=== PATIENT | female | born 1990 | race Asian ===

== ENCOUNTER 2021-06-22 06:01 | Inpatient (IN) ==
--- NOTE | 2021-06-16 12:23 | Anesthesiology Consultation ---
Date of Service June 16, 2021 Assessment & Plan (1) Encounter for pre-operative examination: Chart Review Chart Review: historic preservationist initiated -Will leave BSG DOS to anesthesiologist (hx of gestational DM) Pt has "local anesthesia" allergy - per patient- was given local anesthesia during root canal (unknown what mediation)- caused palpitations Per nursing assessment 06/16/2021, patient denies any recent travel. No known Covid infection in the past 90 days. Patient is fully vaccinated for Covid. No known Covid positive exposures or Covid related symptoms. Preop Covid testing scheduled 06/19/21= will await results History Surgery Operation Date: 06/22/21 07:30 Proposed Procedures p Primary Section in LD - Rito Sloan MD Height/Weight Height: 5 ft 6 in Weight: 79.379 kg Allergies Allergy/AdvReac Type Severity Reaction Status Date / Time local anesthesia AdvReac Intermediate Palpitation Uncoded 06/16/21 11:06 s Medications Home Medications Medication Instructions Recorded Confirmed Last Taken ferrous sulfate 325 mg (65 mg 325 mg PO QAM 04/16/21 06/16/21 04/15/21 08:00 iron) tablet (iron) prenat.vits,omar,ilk-ilug-xagon 1 tab PO QAM 04/16/21 06/16/21 04/15/21 08:00 cyanocobalamin (vitamin B-12) 1,000 mcg PO QAM 06/16/21 06/16/21 Unknown 1,000 mcg tablet (Vitamin B-12) sucralfate 1 gram tablet 1 g PO BID 06/16/21 06/16/21 Unknown Past Medical History Medical History Anemia GERD (gastroesophageal reflux disease) Gestational diabetes diet controlled. History of palpitations "many years ago" Past Family History Family History Other No family history of adverse response to anesthesia Past Surgical History Surgical History History of colonoscopy History of dental surgery local anesthesia History of esophagogastroduodenoscopy (EGD) Social History Smoking Status: Never smoker Do You Dip or Chew Tobacco: No Hx Alcohol Use: No Hx Substance Use: No
[~2021-06-22 06:01] MED LIST: CITRIC ACID/SODIUM CITRATE 15 ML UDC PO SCH; LACTATED RINGER'S 1,000 ML IV SCH; ceFAZolin 2,000 MG in SYRINGE 0 ML IV SCH
[2021-06-22] MEDS ORDERED: fentaNYL citrate 100 MCG/2 ML VIAL ONE (06:51)
[2021-06-22] MEDS ORDERED: MoRPHine SULFATE PF 1 MG/ML 10 ML AMP/VIAL ONE (06:51)
[2021-06-22 07:15] LABS: Basophils # (auto) 0.01 K/uL (0-0.2); Basophils % (auto) 0.1 %; Eosinophils # (auto) 0.07 K/uL (0-0.5); Eosinophils % (auto) 0.7 %; Hematocrit (blood only) 35.6 % (37-47); Hemoglobin 11.5 g/dL (12.0-16.0); Immature Granulocytes # (auto) 0.02 K/uL (0.00-0.02); Immature Granulocytes % (auto) 0.2 %; Lymphocytes # (auto) 2.52 K/uL (1.2-3.4); Lymphocytes % (auto) 24.7 %; Mean Corpuscular Hemoglobin 29.9 pg (25-34); Mean Corpuscular Hgb Conc 32.3 g/dL (32-36); Mean Corpuscular Volume 92.5 fL (80-100); Mean Platelet Volume 10.6 fL (7.4-10.4); Monocytes # (auto) 0.67 K/uL (0.11-0.59); Monocytes % (auto) 6.6 %; Neutrophils # (auto) 6.91 K/uL (1.4-6.5); Neutrophils % (auto) 67.7 %; Platelet Count 237 K/uL (130-400); RDW Coefficient of Variation 12.8 % (11.5-14.5); Red Blood Count 3.85 M/uL (4.2-5.4)
--- NOTE | 2021-06-22 07:19 | History & Physical Report ---
Date of Service June 22, 2021 Assessment & Plan (1) Delivery by elective section: Admission and Anticipated Discharge Date Admission Date: June 22, 2021 History of Present Illness Chief Complaint: elective Primary Primary Care Provider: Sophie Constantino MD 31 F P0000 at term admitted for an elective primary section due to anal fissures. Allergies Allergy/AdvReac Type Severity Reaction Status Date / Time local anesthesia AdvReac Intermediate Palpitation Uncoded 06/16/21 11:06 s Home Medications Medication Instructions Recorded Confirmed Type ferrous sulfate 325 mg (65 mg 325 mg PO QAM 04/16/21 06/22/21 History iron) tablet (iron) prenat.vits,omar,ecq-zqif-cnsvw 1 tab PO QAM 04/16/21 06/22/21 History cyanocobalamin (vitamin B-12) 1,000 mcg PO QAM 06/16/21 06/22/21 History 1,000 mcg tablet (Vitamin B-12) sucralfate 1 gram tablet 1 g PO BID 06/16/21 06/16/21 History Patient History Medical History Anemia GERD (gastroesophageal reflux disease) Gestational diabetes diet controlled. History of palpitations "many years ago" Surgical History History of colonoscopy History of dental surgery local anesthesia History of esophagogastroduodenoscopy (EGD) Family History Other No family history of adverse response to anesthesia Social History Smoking Status: Never smoker Second Hand Exposure: No; Do You Dip or Chew Tobacco: No; Tobacco Cessation Education Requested by Patient: No Hx Alcohol Use: No Hx Substance Use: No Preferred Language: Azeri Communication Ability: Effective Optical Scientist Required: No Beliefs That Will Affect Care: None marital status: Current Living Situation: Spouse and Family Current Living Situation Comment: mother Other Information That Helps Us Care for You: No Feels Safe at Home: Yes Safety Concerns: Feels Safe At This Time Assistive Devices: None OB History neg OVEN TECHNICIAN History neg Review of Systems All systems reviewed & are unremarkable except as noted in HPI & below Physical Exam Constitutional: WD/WN, vitals as above Eyes: PERRL, conjunctivae normal, anicteric sclerae Respiratory: normal respiratory effort, lungs clear to auscultation Cardiovascular: RRR, no murmur, no edema Skin: no rashes, warm and dry Neurologic: patellar DTR's 2+ bilat, sensation intact Psychiatric: A+Ox3, euthymic affect Genitourinary: OB Exam Monitor Tracing: + external FHT monitor used, + external uterine monitor used, + intra-uterine pressure catheter used, + category I and + normal FHT variability Results & Data ([facility]) Vital Signs (Past 12 Hours) Vital Signs Temp Pulse Resp BP 06/22/21 06:20 36.6 C 83 16 114/84 06/22/21 06:12 83 114/84 Laboratory Results Laboratory Results - last 72 hr 06/22/21 06:09 WBC 10.20 RBC 3.85 L Hgb 11.5 L Hct 35.6 L MCV 92.5 MCH 29.9 MCHC 32.3 RDW Std Deviation 43.0 RDW Coeff of Sheila 12.8 Plt Count 237 MPV 10.6 H Immature Gran % (Auto) 0.2 Neut % (Auto) 67.7 Lymph % (Auto) 24.7 [place] % (Auto) 6.6 Eos % (Auto) 0.7 Baso % (Auto) 0.1 Neut # (Auto) 6.91 H Lymph # (Auto) 2.52 [place] # (Auto) 0.67 H Eos # (Auto) 0.07 Baso # (Auto) 0.01 Immature Gran # (Auto) 0.02 Code Status & VTE Plan VTE Prophylaxis Plan VTE Prophylaxis will be ordered: No
[2021-06-22] MEDS ORDERED: diphenhydrAMINE 50 MG/ML VIAL IV PRN ×2 (08:32→09:07)
[2021-06-22] MEDS ORDERED: LACTATED RINGER'S 500 ML IV PRN (08:32)
[2021-06-22] MEDS ORDERED: ePHEDrine sulfate 50 MG/ML AMP IV PRN (08:32)
[2021-06-22] MEDS ORDERED: NALBUPHINE HCL INJ 10 MG/ML AMP IV PRN (08:32)
[2021-06-22] MEDS ORDERED: NALOXONE HCL 0.08 MG in SYRINGE 1.8 ML IV PRN (08:32)
[2021-06-22] MEDS ORDERED: NALOXONE HCL 1 MG in SODIUM CHLORIDE 0.9% 1000ML 1,000 ML IV PRN (08:32)
[2021-06-22] MEDS ORDERED: PROMETHAZINE HCL 6.25 MG in SODIUM CHLORIDE 0.9% 50 ML IV PRN (08:32)
[2021-06-22] MEDS ORDERED: NALOXONE HCL 0.4 MG/1 ML VIAL/CARP IV PRN (08:32)
[2021-06-22] MEDS ORDERED: MoRPHine SULFATE PF 1 MG/ML 10 ML AMP/VIAL INT SPINAL ONE (08:32)
[2021-06-22] MEDS ORDERED: OXYTOCIN 10 UNITS/ML 10ML VIAL ONE (08:33)
[2021-06-22] MEDS ORDERED: ONDANSETRON INJ 2 MG/ML 2 ML VIAL ONE (08:33)
[2021-06-22] MEDS ORDERED: PHENYLEPHRINE HCL 10 MG/ML VIAL ONE (08:33)
[2021-06-22] MEDS ORDERED: DC INTRASPINAL MORPHINE SCH (08:45)
[2021-06-22] MEDS ORDERED: NO NARCOTICS OR SEDATIVES SCH (08:45)
[2021-06-22] MEDS ORDERED: SODIUM CHLORIDE 0.9% 1000ML 1,000 ML IV SCH (08:45)
[2021-06-22] MEDS ORDERED: ONDANSETRON INJ 2 MG/ML 2 ML VIAL IV PRN (09:07)
[2021-06-22] MEDS ORDERED: BENZOCAINE 20% AER SPR 82.5 GM CAN EXT PRN (09:07)
[2021-06-22] MEDS ORDERED: HYDROCORTISONE ACETATE 25 MG SUPP PR PRN (09:07)
[2021-06-22] MEDS ORDERED: MAGNESIUM HYDROXIDE SUSP 30 ML UDC PO PRN (09:07)
[2021-06-22] MEDS ORDERED: SENNA 8.6 MG TAB PO PRN (09:07)
[2021-06-22] MEDS ORDERED: PROMETHAZINE HCL 25 MG in SODIUM CHLORIDE 0.9% 50 ML IV PRN (09:07)
[2021-06-22] MEDS ORDERED: diphenhydrAMINE Capsule 25 MG CAP PO PRN (09:07)
[2021-06-22] MEDS ORDERED: DIPHTHERIA/TETANUS/PERTUSSIS 0.5 ML SYR/VIAL IM ONE (09:07)
[2021-06-22] MEDS ORDERED: oxyCODONE/ACETAMINOPHEN 5mg/325mg TAB PO PRN (09:07)
--- NOTE | 2021-06-22 09:21 | Anesthesia Procedure Note ---
Date of Service June 22, 2021 Anesthesia Post Epidural Note Vital Signs Vital Signs: Temp Pulse Resp BP Pulse Ox 36.6 C 79 16 120/75 100 06/22/21 06:20 06/22/21 09:16 06/22/21 06:20 06/22/21 09:16 06/22/21 09:16 Pain Intensity Left Leg: Pain Intensity: 6 Notes Mental Status: alert / awake / arousable and participated in evaluation Patient Amnestic to Procedure: No Nausea / Vomiting: adequately controlled Pain: adequately controlled Airway Patency, RR, SpO2: stable & adequate BP & HR: stable & adequate Hydration State: stable & adequate Neuraxial Anesthesia: was administered and sensory block is resolving Anesthetic Complications: no major complications apparent and Pt Satisfied with anesthetic care Epidural: Removed without complications and With tip intact
--- NOTE | 2021-06-22 09:24 | Post Operative Brief Note ---
Immediate Post Op Note v1 Date of Surgery June 22, 2021 Pre & Post Diagnosis Operation Date: 06/22/21 07:30 I identified the patient and participated in the time-out.: Yes Procedure Operation Date: 06/22/21 07:30 Primary Section Surgeon Rito Sloan MD Equipment Driver Beverly Estimated Blood Loss 500 Findings Consistent with Post-Op Diagnosis live male Apgars 8/9 weight pending Fluids 1500 LR Specimens cord blood placenta Drains Johnston Catheter Complications none Disposition Accompanied Patient To Recovery: Yes Overlapping Procedure I was present for: the critical portions of procedure.
[2021-06-22] MEDS ORDERED: INFLUENZA VACCINE HIGH DOSE PF 65+ 0.7 ML SYR IM ONE (09:27)
[2021-06-22] MEDS: MoRPHine SULFATE 2 MG/ML CARP IV PRN ×2 (10:10→23:27)
--- NOTE | 2021-06-22 10:30 | Operative Report (OR) ---
DATE OF SURGERY: 06/22/2021. PREOPERATIVE DIAGNOSIS: Term elective primary section. POSTOPERATIVE DIAGNOSIS: Term elective primary section. PROCEDURE: Primary section, low segment transverse. SURGEON: Rito Sloan MD. FINISHING RANGE FEEDER: MENG Murillo. ANESTHESIA: Spinal with Duramorph. COMPLICATIONS: None. FINDINGS: Live male, Apgars 8 and 9, weight pending. ESTIMATED BLOOD LOSS: 500 mL. TOTAL FLUIDS: 1500 mL. TOTAL URINE OUTPUT: 250 mL. CLINICAL HISTORY: The patient is a 31-year-old female, para 0-0-0-0, at 39 weeks and 3 days, admitte d for an elective primary section. The patient had anal fissures and decided to opt for kay jay jay section rather than attempt a vaginal delivery. She was given the risks, benefits, and alternatives to the procedure before surgery. A timeout was called prior to the start of the proced ure, and the patient received 2 grams of Ancef preop. DESCRIPTION OF PROCEDURE: Under satisfactory spinal anesthesia, the patient was prepped and draped i n the usual sterile fashion. A low Pfannenstiel incision was made, carrying the incision down in suc cessive layers without difficulty. Upon entering into the peritoneal cavity, with sharp dissection, a bladder flap was made using Metzenbaum scissors. An incision was made as a low transverse incision . The incision was widened in the AP diameter. The amniotic sac was nicked and found to be clear. The infant was then delivered with the aid of fundal pressure from the vertex presentation. There wa s a 1 minute cord delay followed by clamping and the baby was a male, Apgars 8 and 9, weight pe nding. The baby was handed to economic consultant present for the delivery. Cord blood was obtained. Plac enta delivered spontaneously and intact. Uterus was exteriorized. Ring forceps were then placed on both angles. Another ring was used to dila te the cervix. After the uterus was cleared of all clots and debris, the uterus was closed in a doubl e layer closure starting with a 0 Vicryl suture in a continuous interlocking fashion followed by a se cond imbricating suture. No active bleeding was noted. The initial sponge, needle, and instrument c ounts were found to be correct. Tubes, ovaries bilaterally were found to be within normal limits. T he uterus was then placed back into the normal anatomical position. Contents of the pelvic abdominal cavity were then irrigated to clear. The fascia was then reapproximated from both ends using 0 Vicryl suture in a continuous fashion. Sub cuticular space was closed with a 3-0 plain suture. After this, it was irrigated and then the skin w as reapproximated with 4-0 Monocryl suture. Steri-Strips were applied along with Telfa and dressing. Urine output was 250 mL of clear. Total fluids 1500 mL and the estimated blood loss 500 mL. Final sponge, needle and instrument counts were found to be correct. The patient was then placed supine on a stretcher and taken to recovery room in stable condition. Please note that MENG Murillo, was needed for exposure, retraction, aid in delivering the baby with fundal pressure and helped with sanjeev sure of the abdomen. Job ID: [id number]
[2021-06-22] MEDS: HYDROmorphone INJ 0.5 MG/0.5 ML SYR IV PRN ×2 (10:50→11:09)
[2021-06-22] MEDS ORDERED: OXYTOCIN 20 UNITS in LACTATED RINGER'S 1,000 ML IV SCH (11:45)
[2021-06-22] MEDS: LACTATED RINGER'S 1,000 ML IV SCH ×2 (11:54→20:19)
[2021-06-22] MEDS: SIMETHICONE 80 MG CHEW PO SCH ×3 (14:12→20:19)
[2021-06-22] MEDS: ONDANSETRON INJ 2 MG/ML 2 ML VIAL IV PRN ×2 (14:12→23:27)
--- NOTE | 2021-06-22 15:26 | Anesthesiology Progress Note ---
Date of Service June 22, 2021 Anesthesia Post Procedure Vital Signs Vital Signs: Temp Pulse Pulse Resp BP BP Pulse Ox 06/22/21 12:30 36.5 C 74 16 111/76 100 06/22/21 12:11 73 99 06/22/21 12:06 73 100 06/22/21 12:04 75 114/59 L 06/22/21 12:01 91 H 99 06/22/21 11:56 69 96 06/22/21 11:51 66 98 06/22/21 11:46 69 96 06/22/21 11:42 66 93 06/22/21 11:41 68 94 06/22/21 11:36 75 97 06/22/21 11:31 93 H 100 06/22/21 11:26 65 97 06/22/21 11:21 65 97 06/22/21 11:18 80 120/75 06/22/21 11:16 74 97 06/22/21 11:15 37.0 C 18 06/22/21 11:11 131 H 100 06/22/21 11:06 71 98 06/22/21 11:03 82 117/84 06/22/21 11:01 78 100 06/22/21 10:56 74 100 06/22/21 10:51 69 100 06/22/21 10:48 65 116/80 06/22/21 10:46 69 100 06/22/21 10:41 70 100 06/22/21 10:36 76 100 06/22/21 10:33 72 115/77 06/22/21 10:31 74 100 06/22/21 10:26 74 100 06/22/21 10:21 77 99 06/22/21 10:17 80 113/73 06/22/21 10:16 82 100 06/22/21 10:13 109 H 93 06/22/21 10:11 82 98 06/22/21 10:06 80 129/71 100 06/22/21 10:01 79 100 06/22/21 09:56 76 134/74 100 06/22/21 09:51 84 99 06/22/21 09:50 95 H 93 06/22/21 09:46 79 130/84 100 06/22/21 09:41 80 100 06/22/21 09:36 89 122/80 100 03/22/22 09:31 84 97 06/22/21 09:26 79 119/78 100 06/22/21 09:21 80 100 06/22/21 09:16 79 120/75 100 06/22/21 06:20 36.6 C 83 16 114/84 06/22/21 06:12 83 114/84 Pain Intensity Left Leg: Pain Intensity: 5 Notes Mental Status: alert / awake / arousable Patient Amnestic to Procedure: No Nausea / Vomiting: adequately controlled Pain: adequately controlled Airway Patency, RR, SpO2: stable & adequate BP & HR: stable & adequate Hydration State: stable & adequate Neuraxial Anesthesia: was administered and sensory block resolved Anesthetic Complications: no major complications apparent and Pt Satisfied with anesthetic care Notes: Previous note in error. No epidural was used for this patient. SAB without complication and did well in recovery.
[2021-06-22] MEDS ORDERED: DOCUSATE SODIUM 100 MG CAP PO SCH (21:00)
[2021-06-23] MEDS ORDERED: NURSING DECISION MEDICATION ONE (00:37)
[2021-06-23] MEDS ORDERED: PROMETHAZINE HCL 25 MG in SODIUM CHLORIDE 0.9% 50 ML IV PRN (02:32)
[2021-06-23] MEDS ORDERED: ONDANSETRON INJ 2 MG/ML 2 ML VIAL IV PRN (02:32)
[2021-06-23] MEDS ORDERED: diphenhydrAMINE Capsule 25 MG CAP PO PRN (02:32)
[2021-06-23] MEDS ORDERED: diphenhydrAMINE 50 MG/ML VIAL IV PRN (02:32)
[2021-06-23] MEDS: oxyCODONE/ACETAMINOPHEN 5mg/325mg TAB PO PRN ×3 (05:47→23:47)
[2021-06-23 06:28] LABS: Basophils # (auto) 0.01 K/uL (0-0.2); Basophils % (auto) 0.1 %; Eosinophils # (auto) 0.05 K/uL (0-0.5); Eosinophils % (auto) 0.3 %; Hematocrit (blood only) 26.7 % (37-47); Immature Granulocytes # (auto) 0.04 K/uL (0.00-0.02); Immature Granulocytes % (auto) 0.3 %; Lymphocytes # (auto) 2.16 K/uL (1.2-3.4); Mean Corpuscular Hgb Conc 33.7 g/dL (32-36); Mean Corpuscular Volume 92.1 fL (80-100); Mean Platelet Volume 10.1 fL (7.4-10.4); Monocytes # (auto) 1.16 K/uL (0.11-0.59); Monocytes % (auto) 7.5 %; Neutrophils % (auto) 77.8 %; Platelet Count 196 K/uL (130-400); RDW Coefficient of Variation 12.7 % (11.5-14.5); RDW Standard Deviation 43.2 fL (36.4-46.3); White Blood Count 15.42 K/uL (4.8-10.8)
--- NOTE | 2021-06-23 07:54 | Obstetrical Progress Note ---
Date of Service June 23, 2021 Assessment & Plan Admission and Anticipated Discharge Date Admission Date: June 22, 2021 Subjective Patient is seen and examined. She feels well, no complaints other than itching on lower legs above ankles. Pain is under control with oral meds. Ambulating without dizziness Voiding without difficulty Tolerating regular diet with out N&V Flatus neg BM neg Bleeding is minimal No fever/ chills/ CP/ SOB/ N&V/ Leg pain Breast feeding without problems Vital Signs Temp Pulse Resp BP Pulse Ox 06/23/21 04:30 36.9 C 93 H 18 124/82 98 06/23/21 02:40 16 99 06/23/21 01:30 16 98 06/23/21 00:45 16 98 06/22/21 23:15 37 C 83 16 117/78 98 06/22/21 22:10 36.8 C 82 16 110/75 100 06/22/21 21:50 16 98 Intake & Output 06/22/21 06/23/21 06/23/21 22:59 06:59 14:59 Intake Total 1960.417 / 1960.417 Output Total 425 / 2300 1700 / 2300 Balance -425 / -339.583 260.417 / -339.583 Intake: IV 960.417 / 960.417 Lactated Ringer's 1,000 ml @ 960.417 / 960.417 125 mls/hr IV .Q8H [facility] Rx#: [id number] Oral 1000 / 1000 Output: Urine 200 / 200 Urine Amount (Catheter) / 2099 1500 / 2100 Johnston/Indwelling / 2099 1500 / 2100 PE: General: Alert, orientedx3, NAD CVS: S1S2 RRR Lungs; CTAB Abd: soft, NT, ND, BS+, fundus firm, below Umbilicus Incision/ Dressing: Clean, dry, intact Perineum intact, Lochia rubra minimal Ext; NT, no edema, small red patches on lower legs skin above ankles BL AP: 31 yo s/p C Section, pod# 1 VSS Afebrile doing well Benadryl cream for itching Continue routine postop care Encourage ambulation, PO intake All questions were answered D/C home tomorrow Results & Data ([facility]) Vital Signs (Past 12 Hours) Vital Signs Temp Pulse Resp BP Pulse Ox 06/23/21 04:30 36.9 C 93 H 18 124/82 98 06/23/21 02:40 16 99 06/23/21 01:30 16 98 06/23/21 00:45 16 98 06/22/21 23:15 37 C 83 16 117/78 98 06/22/21 22:10 36.8 C 82 16 110/75 100 06/22/21 21:50 16 98
[2021-06-23] MEDS ORDERED: FERROUS SULFATE 325 MG TAB PO SCH (08:00)
[2021-06-23] MEDS: FERROUS SULFATE 325 MG TAB PO SCH ×3 (08:29→20:10)
[2021-06-23] MEDS: IBUPROFEN 200 MG TAB PO PRN ×2 (08:29→14:04)
[2021-06-23] MEDS: SIMETHICONE 80 MG CHEW PO SCH ×4 (08:29→20:13)
[2021-06-23] MEDS: PRENATAL VITAMIN 1 TAB PO SCH (08:29)
[2021-06-23] MEDS: DOCUSATE SODIUM SYRUP 100 MG/10 ML UDC PO SCH ×2 (08:30→20:13)
[2021-06-23] MEDS ORDERED: bisacodyL 5 MG TABEC PO SCH (20:00)
[2021-06-24] MEDS: oxyCODONE/ACETAMINOPHEN 5mg/325mg TAB PO PRN (05:50)
[2021-06-24 06:22] LABS: Basophils # (auto) 0.02 K/uL (0-0.2); Basophils % (auto) 0.2 %; Eosinophils # (auto) 0.19 K/uL (0-0.5); Eosinophils % (auto) 1.5 %; Hematocrit (blood only) 24.2 % (37-47); Hemoglobin 8.1 g/dL (12.0-16.0); Immature Granulocytes # (auto) 0.03 K/uL (0.00-0.02); Immature Granulocytes % (auto) 0.2 %; Lymphocytes # (auto) 2.25 K/uL (1.2-3.4); Lymphocytes % (auto) 17.8 %; Mean Corpuscular Hemoglobin 30.7 pg (25-34); Mean Corpuscular Hgb Conc 33.5 g/dL (32-36); Mean Corpuscular Volume 91.7 fL (80-100); Mean Platelet Volume 9.7 fL (7.4-10.4); Monocytes # (auto) 1.08 K/uL (0.11-0.59); Monocytes % (auto) 8.5 %; Neutrophils # (auto) 9.07 K/uL (1.4-6.5); Neutrophils % (auto) 71.8 %; Platelet Count 194 K/uL (130-400); RDW Coefficient of Variation 12.7 % (11.5-14.5); RDW Standard Deviation 42.9 fL (36.4-46.3); Red Blood Count 2.64 M/uL (4.2-5.4); White Blood Count 12.64 K/uL (4.8-10.8)
[2021-06-24 06:23] LABS: Hematocrit (blood only) 24.3 % (37-47); Hemoglobin 8.1 g/dL (12.0-16.0)
--- NOTE | 2021-06-24 08:33 | Obstetrical Progress Note ---
Date of Service June 24, 2021 Subjective Ambulation: ambulating normally Voiding: no voiding problems Passing Gas:: Yes Diet Tolerance:: regular diet Lochia:: Small Feeding Type:: breast feeding Current Pain Level(1-10): 0 doing well may go home depending on baby Physical Exam Constitutional WD/WN, vitals as above abdomen slightly tympanitic soft and non-tender incision c/d/i no edema neg Mabel's possible d/c home later today Results & Data ([place]) Vital Signs (Past 12 Hours) Vital Signs Temp Pulse Resp BP 06/23/21 23:45 36.9 C 89 18 122/83 Laboratory Results 06/22/21 06/22/21 06/23/21 06:09 06:09 06:04 WBC 10.20 RBC 3.85 L Hgb 11.5 L Hct 35.6 L MCV 92.5 MCH 29.9 MCHC 32.3 RDW Std Deviation 43.0 RDW Coeff of Sheila 12.8 Plt Count 237 MPV 10.6 H Immature Gran % (Auto) 0.2 Neut % (Auto) 67.7 Lymph % (Auto) 24.7 [place] % (Auto) 6.6 Eos % (Auto) 0.7 Baso % (Auto) 0.1 Neut # (Auto) 6.91 H Lymph # (Auto) 2.52 [place] # (Auto) 0.67 H Eos # (Auto) 0.07 Baso # (Auto) 0.01 Immature Gran # (Auto) 0.02 Blood Type O Negative O Negative Antibody Screen NEGATIVE Cancelled Screen Negative 06/23/21 06/24/21 06/24/21 06:04 06:02 06:02 WBC 15.42 H 12.64 H RBC 2.90 L 2.64 L Hgb 9.0 L 8.1 L 8.1 L Hct 26.7 L 24.2 L 24.3 L MCV 92.1 91.7 MCH 31.0 30.7 MCHC 33.7 33.5 RDW Std Deviation 43.2 42.9 RDW Coeff of Sheila 12.7 12.7 Plt Count 196 194 MPV 10.1 9.7 Immature Gran % (Auto) 0.3 0.2 Neut % (Auto) 77.8 71.8 Lymph % (Auto) 14.0 17.8 [place] % (Auto) 7.5 8.5 Eos % (Auto) 0.3 1.5 Baso % (Auto) 0.1 0.2 Neut # (Auto) 12.00 H 9.07 H Lymph # (Auto) 2.16 2.25 [place] # (Auto) 1.16 H 1.08 H Eos # (Auto) 0.05 0.19 Baso # (Auto) 0.01 0.02 Immature Gran # (Auto) 0.04 H 0.03 H Blood Type Antibody Screen Screen
[2021-06-24] MEDS ORDERED: bisacodyL 10 MG SUPP PR PRN (09:07)
[2021-06-24] MEDS: PRENATAL VITAMIN 1 TAB PO SCH (09:22)
[2021-06-24] MEDS: IBUPROFEN 200 MG TAB PO PRN ×3 (09:22→20:21)
[2021-06-24] MEDS: SIMETHICONE 80 MG CHEW PO SCH ×4 (09:22→20:21)
[2021-06-24] MEDS: FERROUS SULFATE 325 MG TAB PO SCH ×2 (09:22→21:00)
[2021-06-24] MEDS: DOCUSATE SODIUM SYRUP 100 MG/10 ML UDC PO SCH ×2 (09:22→20:21)
[2021-06-25] MEDS: IBUPROFEN 200 MG TAB PO PRN ×2 (00:27→06:42)
[2021-06-25] MEDS: FERROUS SULFATE 325 MG TAB PO SCH (08:27)
[2021-06-25] MEDS: PRENATAL VITAMIN 1 TAB PO SCH (08:27)
[2021-06-25] MEDS: SIMETHICONE 80 MG CHEW PO SCH (08:27)
[2021-06-25] MEDS: oxyCODONE/ACETAMINOPHEN 5mg/325mg TAB PO PRN (08:27)
[2021-06-25] MEDS: DOCUSATE SODIUM SYRUP 100 MG/10 ML UDC PO SCH (08:31)
--- NOTE | 2021-06-25 09:02 | Obstetrical Progress Note ---
Date of Service June 25, 2021 Assessment & Plan Admission and Anticipated Discharge Date Admission Date: June 22, 2021 Subjective Patient is seen and examined. She feels well, no complaints. Pain is under control with oral meds. Ambulating without dizziness Voiding without difficulty Tolerating regular diet with out N&V Flatus + BM neg Bleeding is minimal No fever/ chills/ CP/ SOB/ N&V/ Leg pain Breast feeding without problems Vital Signs Temp Pulse Resp BP Pulse Ox 06/25/21 00:25 36.8 C 87 18 124/86 06/24/21 20:15 36.6 C 95 H 18 131/88 100 06/24/21 15:57 36.3 C L 97 H 16 121/86 100 06/24/21 10:00 37.0 C 87 16 128/80 100 Lab Results 06/22/21 06/22/21 06/23/21 Range/Units 06:09 06:09 06:04 WBC 10.20 (4.8-10.8) K/uL RBC 3.85 L (4.2-5.4) M/uL Hgb 11.5 L (12.0-16.0) g/dL Hct 35.6 L (37-47) % MCV 92.5 (80-100) fL MCH 29.9 (25-34) pg MCHC 32.3 (32-36) g/dL RDW Std Deviation 43.0 (36.4-46.3) fL RDW Coeff of Sehila 12.8 (11.5-14.5) % Plt Count 237 (130-400) K/uL MPV 10.6 H (7.4-10.4) fL Immature Gran % (Auto) 0.2 % Neut % (Auto) 67.7 % Lymph % (Auto) 24.7 % [place] % (Auto) 6.6 % Eos % (Auto) 0.7 % Baso % (Auto) 0.1 % Neut # (Auto) 6.91 H (1.4-6.5) K/uL Lymph # (Auto) 2.52 (1.2-3.4) K/uL [place] # (Auto) 0.67 H (0.11-0.59) K/uL Eos # (Auto) 0.07 (0-0.5) K/uL Baso # (Auto) 0.01 (0-0.2) K/uL Immature Gran # (Auto) 0.02 (0.00-0.02) K/uL Blood Type O Negative O Negative Antibody Screen NEGATIVE Cancelled Screen Negative (Negative) 06/23/21 06/24/21 06/24/21 Range/Units 06:04 06:02 06:02 WBC 15.42 H 12.64 H (4.8-10.8) K/uL RBC 2.90 L 2.64 L (4.2-5.4) M/uL Hgb 9.0 L 8.1 L 8.1 L (12.0-16.0) g/dL Hct 26.7 L 24.2 L 24.3 L (37-47) % MCV 92.1 91.7 (80-100) fL MCH 31.0 30.7 (25-34) pg MCHC 33.7 33.5 (32-36) g/dL RDW Std Deviation 43.2 42.9 (36.4-46.3) fL RDW Coeff of Sheila 12.7 12.7 (11.5-14.5) % Plt Count 196 194 (130-400) K/uL MPV 10.1 9.7 (7.4-10.4) fL Immature Gran % (Auto) 0.3 0.2 % Neut % (Auto) 77.8 71.8 % Lymph % (Auto) 14.0 17.8 % [place] % (Auto) 7.5 8.5 % Eos % (Auto) 0.3 1.5 % Baso % (Auto) 0.1 0.2 % Neut # (Auto) 12.00 H 9.07 H (1.4-6.5) K/uL Lymph # (Auto) 2.16 2.25 (1.2-3.4) K/uL [place] # (Auto) 1.16 H 1.08 H (0.11-0.59) K/uL Eos # (Auto) 0.05 0.19 (0-0.5) K/uL Baso # (Auto) 0.01 0.02 (0-0.2) K/uL Immature Gran # (Auto) 0.04 H 0.03 H (0.00-0.02) K/uL Blood Type Antibody Screen Screen (Negative) PE: General: Alert, orientedx3, NAD CVS: S1S2 RRR Lungs; CTAB Abd: soft, NT, ND, BS+, fundus firm, below Umbilicus Incision: Clean, dry, intact Perineum intact, Lochia rubra minimal Ext; NT, no edema AP: 31 yo s/p C Section, pod# 3 VSS Afebrile doing well Continue routine postop care Encourage ambulation, PO intake Discussed when to call All questions were answered D/C home , f/u in office Results & Data ([facility]) Vital Signs (Past 12 Hours) Vital Signs Temp Pulse Resp BP 06/25/21 00:25 36.8 C 87 18 124/86
--- NOTE | 2021-07-02 16:38 | Discharge Summary (DS) ---
DATE OF DISCHARGE: 06/25/2021. REASON FOR ADMISSION AND HOSPITAL COURSE: The patient is a 31-year-old female, 1, para 0, 39 weeks and 3 days, admitted for elective primary section. The patient had a primary cesarea n section due to history of anal fissures. She elected this on her own despite the risks of surgery. section was done under spinal anesthesia. Delivering a live male. Apgars were 8 and 9, ve rtex presentation. There were no complications. The patient was discharged home 06/25/2021 in stabl e condition. Home going instructions were given. Regular diet on discharge. MEDICATIONS ON DISCHARGE: Include Motrin and Percocet and followup will be in 1 week for incision gregory ck. Job ID: [id number]
== END 2021-06-25 13:24 | disposition home or self-care (01) | DRG 788 ==
LOC: 4S1 06:01 → EDSTATUS 07:30 → 4E2 12:20